=== PATIENT | female | born 1955 | race Caucasian/White ===

== ENCOUNTER 2019-03-13 16:12 | Inpatient (IN) | payer OTHER ==
[~2019-03-13] VITALS: Ht 165.1 cm; Wt 62.7 kg
[2019-03-13] MEDS ORDERED: ZIAC 5-6.25 MG1 TAB PO (17:06)
[2019-03-13] MEDS ORDERED: ARMOUR THYROID30 MG PO (17:06)
[2019-03-13] MEDS ORDERED: ZESTRIL10 MG PO (17:06)
[2019-03-13] MEDS ORDERED: ALENDRONATE SOD40 MG PO (17:08)
[2019-03-13 17:31] VITALS: BP 167/93; Ht 165.1 cm; Wt 62.7 kg
--- NOTE | 2019-03-13 17:53 | NUR ---
LEFT FA 20G IV INSERTED ON FIRST ATTEMPT. FLUSHED WITH 20ML OF NS AND SL.
--- NOTE | 2019-03-13 17:55 | NUR ---
UA SPECIMEN COLLECTION EXPLAINED TO PT. COLLECTION CUP PLACED IN BATHROOM.
[2019-03-13 18:39] LABS: BASOPHILS 0.3 % (0-2); HEMATOCRIT 40.5 % (36.0-48.0); HEMOGLOBIN 13.7 g/dL (12-16); IMMATURE GRANULOCYTES 0.5 % (0-5); LYMPHOCYTES 33.7 % (15-50); MCHC 33.8 g/dL (31.0-37.0); MCV 100.5 fL (80.0-100.0); MEAN PLATELET VOLUME 10.7 fL (7.4-10.4); NEUTROPHILS 54.5 % (40-80); PLATELET COUNT 206 10x3/uL (130-400); RBC 4.03 10x6/uL (4.00-5.40); RDW 12.1 % (11.5-14.5)
[2019-03-13 18:48] LABS: APPEARANCE CLEAR (CLEAR); BILIRUBIN NEGATIVE (NEGATIVE); COLOR YELLOW (YELLOW); GLUCOSE NEGATIVE (NEGATIVE); KETONE NEGATIVE (NEGATIVE); NITRITE NEGATIVE (NEGATIVE); PROTEIN NEGATIVE (NEGATIVE); UROBILINOGEN NORMAL (NORMAL)
--- NOTE | 2019-03-13 19:02 | NUR ---
AWAKE AND ALERT BED LOW AND LOCKED SRX2 AND CALL LIGHT IS IN REACH PT DENIES CP NO SOB PT IS ON RA LCTA
[2019-03-13 19:07] LABS: CKMB 1.8 U/L (0.0-3.6); CREATINE KINASE 107 UL (21-215)
[2019-03-13 19:14] LABS: TROPONIN-I < 0.017 ng/mL (0.000-0.060)
[2019-03-13 20:48] VITALS: BP 112/67
[2019-03-13 23:49] LABS: CKMB 1.3 U/L (0.0-3.6); CREATINE KINASE 71 UL (21-215); TROPONIN-I < 0.017 ng/mL (0.000-0.060)
[2019-03-14 00:19] VITALS: BP 129/78
--- NOTE | 2019-03-14 01:09 | NUR ---
I have reviewed this patient and I concur with the Shift Assessment completed by the Licensed Practical Nurse today this shift.
--- NOTE | 2019-03-14 02:17 | NUR ---
TELEMETRY JUST ORDERED BUT TELEMETRY IS NOT AVAILABLE PT IS NOT HAVING ANY CP AN EKGs ARE BEING DONE
[2019-03-14 04:30] VITALS: BP 140/78
[2019-03-14 06:23] LABS: BASOPHILS 0.3 % (0-2); EOSINOPHILS 6.1 % (0-7); HEMATOCRIT 35.1 % (36.0-48.0); IMMATURE GRANULOCYTES 0.6 % (0-5); LYMPHOCYTES 43.8 % (15-50); MCHC 34.2 g/dL (31.0-37.0); MCV 99.4 fL (80.0-100.0); MEAN PLATELET VOLUME 10.4 fL (7.4-10.4); MONOCYTES 12.4 % (2-11); NEUTROPHILS 36.8 % (40-80); RBC 3.53 10x6/uL (4.00-5.40); RDW 12.1 % (11.5-14.5)
[2019-03-14 06:58] LABS: CALC OSMOLALITY 283 mosm/kg (275-300); CALCIUM 8.4 mg/dL (8.5-10.1); CARBON DIOXIDE 28.6 mmol/L (21.0-32.0); CHLORIDE - SERUM 108 mmol/L (98-107); CREATINE KINASE 64 UL (21-215); CREATININE - SERUM 0.8 mg/dL (0.6-1.3); GLUCOSE 98 mg/dL (74-106); MAGNESIUM - SERUM 1.9 mg/dL (1.8-2.4); POTASSIUM - SERUM 3.7 mmol/L (3.5-5.1); SODIUM 142 mmol/L (136-145); THYROID STIMULATING HORMONE 1.21 uIU/mL (0.36-3.74); UREA NITROGEN 15 mg/dL (7-18); eGFR NON AFRICAN AMERICAN 77 mL/min (90-120)
[2019-03-14 07:01] LABS: PLATELET COUNT 158 10x3/uL (130-400); WBC 3.5 10x3/uL (4.8-10.8)
[2019-03-14 07:09] LABS: TROPONIN-I < 0.017 ng/mL (0.000-0.060)
[2019-03-14 07:44] VITALS: BP 157/76
--- NOTE | 2019-03-14 08:23 | NUR ---
REPORT RECEIVED. WILL CONTINUE WITH POC. PT CURRENTLY LYING SEMI FOWLERS. CALL LIGHT W/I REACH. PT IS NPO FOR STRESS TEST. RR EVEN AND UNLABORED ON RA. D51/2NS INFUSING @KVO VIA L.FOR PIV. PT DENIES ANY NEEDS AT THIS TIME. NO S/S OF DISTRESS NOTED. WILL CTM.
--- NOTE | 2019-03-14 14:48 | NUR ---
I have reviewed this patient and I concur with the Shift Assessment completed by the Licensed Practical Nurse today this shift.
[2019-03-14 14:56] VITALS: BP 142/65
[2019-03-14 15:14] LABS: % SATURATION 71 % (15-55); IRON 140 ug/dl (35-150); TOTAL IRON BIND CAPACITY 195 ug/dl (260-445); UNSAT IRON BIND CAPACITY 55 ug/dl (150-375)
--- NOTE | 2019-03-14 19:19 | NUR ---
AWAKE IN BED BED IS LOW AND LOCKED CALL LIGHT IS IN REACH AND PT DENIES NEEDS AT THIS TIME
[2019-03-14 20:00] VITALS: BP 122/62
[2019-03-15] VITALS: BP 163/58
--- NOTE | 2019-03-15 01:44 | NUR ---
I have reviewed this patient and I concur with the Shift Assessment completed by the Licensed Practical Nurse today this shift.
[2019-03-15 04:00] VITALS: BP 142/78
[2019-03-15 07:55] LABS: BASOPHILS 0.3 % (0-2); EOSINOPHILS 6.6 % (0-7); HEMATOCRIT 36.5 % (36.0-48.0); HEMOGLOBIN 12.5 g/dL (12-16); IMMATURE GRANULOCYTES 0.3 % (0-5); LYMPHOCYTES 45.1 % (15-50); MCH 34.1 pg (26.0-34.0); MCHC 34.2 g/dL (31.0-37.0); MCV 99.5 fL (80.0-100.0); MEAN PLATELET VOLUME 10.3 fL (7.4-10.4); MONOCYTES 9.1 % (2-11); NEUTROPHILS 38.6 % (40-80); PLATELET COUNT 163 10x3/uL (130-400); RBC 3.67 10x6/uL (4.00-5.40); RDW 11.9 % (11.5-14.5); WBC 3.2 10x3/uL (4.8-10.8)
[2019-03-15 08:04] LABS: CALC OSMOLALITY 281 mosm/kg (275-300); CALCIUM 8.5 mg/dL (8.5-10.1); CARBON DIOXIDE 27.3 mmol/L (21.0-32.0); CHLORIDE - SERUM 106 mmol/L (98-107); CREATININE - SERUM 0.6 mg/dL (0.6-1.3); GLUCOSE 101 mg/dL (74-106); MAGNESIUM - SERUM 1.9 mg/dL (1.8-2.4); PHOSPHOROUS 3.5 mg/dL (2.5-4.9); POTASSIUM - SERUM 3.5 mmol/L (3.5-5.1); SODIUM 141 mmol/L (136-145); UREA NITROGEN 14 mg/dL (7-18); eGFR NON AFRICAN AMERICAN > 90 mL/min (90-120)
[2019-03-15 09:01] VITALS: BP 163/82
--- NOTE | 2019-03-15 12:32 | NUR ---
PAGE INTO DR STEWART FOR DISCHARGE OK. AWAITING CALL BACK.
--- NOTE | 2019-03-15 12:33 | NUR ---
UPON ADMIT, PATIENT HAS ALREADY HAD A FLU SHOT.
--- NOTE | 2019-03-15 12:35 | NUR ---
DR STEWART TO CALL BACK WITH NEW ORDERS.
[2019-03-15 12:49] VITALS: BP 144/69
--- NOTE | 2019-03-15 15:33 | MORECARE ---
CASE MANAGEMENT DISCHARGE SUMMARY PATIENT: MIRTA PATRICIA UNIT: [id number] ADM DATE: 03/13/19 AGE: 63 : 55 SEX: F ROOM/BED: D.2103 AUTHOR: MEGHAN,DOC PHYSICIAN: REFERRING PHYSICIAN: SAMUEL WILCOX MD DATE OF SERVICE: 03/15/19 Discharge Plan Patient Name: MIRTA PATRICIA Facility: [facility]:[place] : 1955 Planned Disposition: Home Anticipated Discharge Date: 03/15/19 Discharge Date: Expected LOS: 2 Initial Reviewer: [id number] Initial Review Date: 03/15/2019 Generated: 03/15/19 4:32 pm Comments DCP- Discharge Planning Updated by [email or web address]: Tejas Hamilton on 03/15/19 2:[address] Patient Name: MIRTA PATRICIA Admission Status: Urgent Accout number: [id number] Admission Date: 03-13-2019 : 1955 Admission Diagnosis: Attending: SAMUEL WILCOX Current LOS: 2 Anticipated DC Date: 03-15-2019 Planned Disposition: Home Primary Insurance: [employer] PPO Discharge Planning Comments: CM RECEIVED DISCHARGE ORDER, MET WITH PT IN ROOM TO DISCUSS DISCHARGE PLANNING AND NEEDS. PT REPORTS LIVING AT HOME INDEPENDENTLY WITH HER SPOUSE. PT HAS NO MEDICAL EQUIPMENT AND NO OUTSIDE SERVICES ASSISTING IN THE HOME. CM DISCUSSED AVAILABILITY OF HOME HEALTH, REHAB SERVICES AND MEDICAL EQUIPMENT. PT DENIES DISCHARGE NEEDS, REPORTS HER SPOUSE IS HERE AND WILL PICK HER UP FOR DISCHARGE HOME TODAY. CM DISCUSSED ORDER FOR [facility], PT REFUSED STATING SHE HAS A THAT TAKES CARE OF HER IF NEEDED. CM NOTIFIED UROLOGIST NURSE. PT DENIES DISCHARGE NEEDS, REFUSES HOUSECALLS. SPOUSE TO TRANPSORT HOME. Carton Stapler: Tejas Hamilton DCPIA - Discharge Planning Initial Assessment Updated by [email or web address]: Tejas Hamilton on 03/15/19 3:27 pm * Is the patient Alert and Oriented? Yes * How many steps to enter\exit or inside your home? * PCP DR. WILCOX * Pharmacy [facility] [address] * Preadmission Environment Home with Family * ADLs Independent * Equipment None * Other Equipment NO MEDICAL EQUIPMENT PROVIDER PREFERENCE * List name and contact numbers for known caregivers / representatives who currently or will assist patient after discharge: TERI HERNANDES, * Verbal permission to speak to the caregivers and representatives has been obtained from the patient. Yes * Community resources currently utilized None * Please name any agencies selected above. NONE * Additional services required to return to the preadmission environment? No * Can the patient safely return to the preadmission environment? Yes * Has this patient been hospitalized within the prior 30 days at any hospital? No Patient Name: MIRTA PATRICIA Page [id number] at 1533 All edits/amendments must be made on the electronic document DICTATION DATE: 03/15/191531 V BELT BUILDER: RAUL 03/15/191531 RPT#: [id number] DC DATE: STATUS: ADM IN [facility] [address] [place] [address] END OF REPORT
--- NOTE | 2019-03-15 16:00 | NUR ---
DISCHARGE INSTRUCTIONS GIVEN TO PT. PT HAS NO FURTHER QUESTIONS. CHART COPY SIGNED. LEFT FA 20G IV DC'D WITH CATH INTACT. PT REFUSED WC. PT WALKED DOWN WITH SPOUSE AND LEFT IN PERSONAL CAR.
== END 2019-03-15 16:02 | disposition home or self-care (01) | DRG 313 ==
LOC: D.M2 16:12 → D.SDCHOLD 16:12 → D.M2 16:46
PROVIDERS: Internal Medicine Nephrology; ADMIT Family Medicine; ATTEND Family Medicine
DX: R07.9 Chest pain, unspecified (principal); I20.9 Angina pectoris, unspecified; I10 Essential (primary) hypertension; E78.5 Hyperlipidemia, unspecified; E03.9 Hypothyroidism, unspecified; M81.0 Age-related osteoporosis without current pathological fracture; D53.9 Nutritional anemia, unspecified; Z86.73 Personal history of transient ischemic attack (TIA), and cerebral infarction without residual deficits